=== PATIENT | female | born 1975 | race Caucasian/White ===

== ENCOUNTER 2022-03-20 09:56 | Outpatient (CLI) | payer OTHER | END 2022-03-20 09:57 | disposition home or self-care (01) | LOC: BICMAMMO 09:56 | PROVIDERS: ATTEND Obstetrics & Gynecology | DX: Z12.31 Encounter for screening mammogram for malignant neoplasm of breast (principal); N63.10 Unspecified lump in the right breast, unspecified quadrant; Z80.3 Family history of malignant neoplasm of breast | CPT/HCPCS: 77066; G0279 ==